=== PATIENT | female | born 1955 | race Caucasian/White ===

== ENCOUNTER → 2017-06-22 | Day surgery (SDC) | payer OTHER ==
[~2017-06-22] MED LIST: ACETAMINOPHEN 1000 MG/100 ML 100 ML IV ONE; ACETAMINOPHEN/HYDROcodone 325 MG/5 MG TAB ONE; BACITRACIN IM FOR SOLN 50,000 UNIT VIAL ONE; BUPIVACAINE/EPINEPHRINE 0.25% 50 ML VIAL ONE; GENTAMICIN SULFATE 80 MG/2 ML VIAL ONE; KETOROLAC TROMETHAMINE 30 MG/ML (IVP) VIAL IV PUSH ONE; LACTATED RINGER'S 1000 ML INJ 0 ML ONE; LIDOCAINE 2%/EPINEPHrine PF 1:200,000 20ML SDV ONE; MEPERIDINE HCL 25 MG/ML VIAL ONE; MEPERIDINE HCL 50 MG/ML VIAL ONE; MIDAZOLAM HCL 2 MG/2 ML VIAL ONE; ONDANSETRON HCL 4 MG/2 ML VIAL IV PUSH ONE; PROPOFOL 100 MG/10 ML INJ IV ONE; SODIUM CHLORIDE 0.9% 20 ML VIAL ONE; ceFAZolin INJ 1,000 MG VIAL ONE
--- NOTE | 2017-06-22 12:18 | TN ---
cc: ONUR BOWLES M.D. DATE OF SURGERY 06/22/2017 PREOPERATIVE DIAGNOSIS Deflation of implants and ptosis. PROCEDURES Removal and re-augmentation with circumvertical mastopexy. SURGEON Onur Bowles MD ANESTHESIA LMA general. ESTIMATED BLOOD LOSS Minimal. COMPLICATIONS None. DRAINS None. IMPLANT DATA Right breast implant device is a Natrelle INSPIRA SRM, volume 275 cc, serial number [id number]. Left breast implant device is a Natrelle INSPIRA SRM, volume 275 cc, serial number [id number]. PROCEDURE She was properly consented, marked, properly anesthetized. The skin was sterilized with Betadine solution and sterile draping applied. Isolation of the nipple-areolar complex was carried out. Through the infra-areolar vertical incision the pocket was encountered and the implant deflated, saline implant was removed. Irrigation with antibiotic solution was carried out. Lateral inferior and medial capsulorrhaphies were done utilizing multiple 0 silks in a locking fashion. After that was properly corrected, capsulotomies were done where needed mostly in the superior aspect of the capsule. We remain on this retropectoral plane. The left breast was approached in exactly the same manner as previously described. I new implant was introduced and the wound was closed in multiple 2-0 Monocryl suture layers in the capsule, breast parenchyma and dermis. As the patient was sat up, a tailor tack technique was utilized in order to assess now the new anatomical excessive skin envelope. After that was properly set, we ended up with the NAC at approximately 20 cm from the sternal notch and we round the areola at 42 mm areolar diameter. With this I proceeded to perform the marking, de-epithelialization of the skin after the edison were removed and I proceeded to perform the closure of wounds as follows: The horizontal and vertical incision with 2-0 Monocryl suture. The new NAC was closed with a pinwheel type technique utilizing 2-0 PTFE suture reinforced with 2-0 Quill. Prineo Dermabond was applied thereafter. Overall the patient tolerated the procedure well. She was awakened, extubated in the operating room. A snug brassiere was applied thereafter. She was awakened and extubated in the operating room, transferred back to the postanesthesia care unit in stable condition. No complications appreciated and the patient tolerated the procedure fairly well. MD JEFFREY See/EMILY /11:52 AM /12:04 PM
== END | disposition home or self-care (01) ==
LOC: ESDC 08:49
PROVIDERS: ATTEND Plastic Surgery
DX: Z41.1 Encounter for cosmetic surgery (principal)
CPT/HCPCS: 00400; 00402; 19316; 19325; 19328; J0131; J0690; J1580; J1885; J2175; J2250; J2405; J3010; C1789; J7120